=== PATIENT | male | born 1970 | race Caucasian/White ===

== ENCOUNTER 2020-11-08 08:00 | Outpatient (CLI) | payer OTHER | END 2020-11-08 08:30 | disposition home or self-care (01) | LOC: PPH VACUNA 08:00 | PROVIDERS: ATTEND Emergency Medicine Pediatric Emergency Medicine | DX: Z23 Encounter for immunization (principal) ==

== ENCOUNTER 2020-11-08 13:37 | Outpatient (CLI) | payer OTHER | END 2020-11-08 13:53 | disposition home or self-care (01) | LOC: MRI 13:37 | DX: M47.892 Other spondylosis, cervical region (principal); M43.22 Fusion of spine, cervical region; M50.20 Other cervical disc displacement, unspecified cervical region | CPT/HCPCS: 72141 ==

== ENCOUNTER → 2020-11-10 | Outpatient (CLI) | payer OTHER | END | disposition home or self-care (01) | LOC: NUCLEAR 11:00 | PROVIDERS: ATTEND Medical Genetics, Ph.D. Medical Genetics | DX: I65.23 Occlusion and stenosis of bilateral carotid arteries (principal) ==

== ENCOUNTER 2020-11-29 13:07 | Outpatient (CLI) | payer OTHER | END 2020-11-29 13:17 | disposition home or self-care (01) | LOC: SONOGRAMA 13:07 | PROVIDERS: ATTEND Family Medicine | DX: M25.512 Pain in left shoulder (principal); M25.511 Pain in right shoulder ==

== ENCOUNTER 2020-12-15 13:53 | Outpatient (CLI) | payer OTHER | END 2020-12-15 14:11 | disposition home or self-care (01) | LOC: RAD 13:53 | DX: M06.89 Other specified rheumatoid arthritis, multiple sites (principal); M79.673 Pain in unspecified foot; M79.643 Pain in unspecified hand ==

== ENCOUNTER 2020-12-18 09:38 | Outpatient (CLI) | payer OTHER | END 2020-12-18 09:47 | disposition home or self-care (01) | LOC: MRI 09:38 | PROVIDERS: ATTEND Family Medicine | DX: M75.121 Complete rotator cuff tear or rupture of right shoulder, not specified as traumatic (principal) | CPT/HCPCS: 73221 ==

== ENCOUNTER → 2020-12-18 | Outpatient (CLI) | payer OTHER | END | disposition home or self-care (01) | LOC: NUCLEAR 08:00 | PROVIDERS: ATTEND Family Medicine | DX: I40.9 Acute myocarditis, unspecified (principal); R06.02 Shortness of breath ==